=== PATIENT | female | born 1975 | race Caucasian/White ===

== ENCOUNTER 2021-02-05 13:52 | Emergency (ER) | payer OTHER, SELFPAY ==
--- NOTE | 2021-02-05 14:26 | XR_ITS ---
WS: [id number] XR chest 1V portable [id number] REASON FOR EXAM: cough, congestion FINDINGS: Mild tortuosity of the thoracic aorta. Normal heart size. Calcified granulomatous disease in both hemithoraces. No active pulmonary parenchymal or pleural disease. No significant abnormality of the bony thorax. XR/XR chest 1V portable [id number] IMPRESSION: No acute chest abnormality.
[2021-02-05 14:44] VITALS: BP 167/102; PULSE 90; RESP 16; TEMP 36.8; O2SAT 96; BMI 44.6
[2021-02-05 18:49] VITALS: O2SAT 98
--- NOTE | 2021-02-05 18:50 | W.ED.COVID ---
HPI - COVID General: Chief Complaint: COVID symptoms Stated Complaint: Cough, Ear Pain, DAVIS, Congestion Time Seen by Provider: 02/05/21 18:37 Source: patient Mode of arrival: ambulatory Limitations: no limitations Triage information: Has fever, cough or shortness of breath. No known COVID + exposure last 14 days History of Present Illness: HPI Narrative: Female states of last 2 days she has been having nasal congestion, bilateral ear pain and a slight cough. States that she had some sinus pain as well. She denies any fever denies any shortness of breath. Denies any worsening improving factors. She denies any vomiting or diarrhea. COVID 19 common symptoms: positive non-productive cough and nasal congestion; negative fever(s), chills, body aches, headache(s), nausea, vomiting or diarrhea COVID 19 other sytmptoms: negative chest pain COVID Results: SARS-CoV-2 Antigen (Rapid) Negative (Negative) 02/05/21 18:46 02/05/21 Review of Systems Const: Denies: fever(s), chills, body aches or change in appetite Eyes: Denies: blurry vision or eye discomfort ENMT: Reports: nasal discharge and nasal congestion Card: Denies: chest pain Resp: Reports: non-productive cough GI: Denies: abdominal pain, nausea, vomiting or diarrhea : Denies: dysuria Musc: Denies: neck pain or back pain Skin/Breast: Denies: rash Neuro: Denies: headache(s) Psych: Denies: depression Immanuel/Lymph: Denies: easy bruising All/Imm: Denies: urticaria Physical Exam Const: COMMON NORMALS: no acute distress, patient oriented x3 and healthy appearing HENMT: COMMON NORMALS: normocephalic, atraumatic and TM's normal bilaterally HEAD & SCALP: normocephalic and atraumatic TYMPANIC MEMBRANE: TM's normal bilaterally Eye: COMMON NORMALS: Equal, round and reactive pupils present and EOMs intact bilaterally PUPIL: Yes Equal, round and reactive pupils present Neck/C-Spine: COMMON NORMALS: full ROM and supple Chest: COMMONS NORMALS: normal inspection of the chest and normal palpation of entire chest wall Resp: COMMON NORMALS: normal respiratory effort, No retractions, No use of accessory muscles and clear to auscultation bilaterally AUSCULTATION: clear to auscultation bilaterally Cardio: COMMON NORMALS: regular rate, regular rhythm and No murmurs present (Cardio) RATE: regular rate RHYTHM: regular rhythm GI: COMMON NORMALS: Normal to inspection, nondistended, normoactive bowel sounds present, Soft to palpation, non-tender and no masses PALPATION: Yes Soft to palpation Extremity: COMMON NORMALS: normal to inspection and full ROM Neuro: COMMON NORMALS: patient oriented x3, moves all extremities and no focal motor deficits Psych: COMMON NORMALS: mental status grossly normal, Normal thought process present and cooperative THOUGHT PROCESS: Normal thought process present Skin: COMMON NORMALS: no rashes or lesions noted and no wounds GENERAL SKIN EXAM: no rashes or lesions noted Course Vital Signs: Vital signs: Vital Signs Temperature 98.4 F 02/05/21 18:52 Pulse Rate 92 02/05/21 19:32 Respiratory Rate 16 02/05/21 18:52 Blood Pressure 158/82 02/05/21 19:32 Pulse Oximetry 97 02/05/21 19:32 MDM - COVID MDM Narrative: Medical decision making narrative: Patient presents with likely sinusitis she is taking decongestants we will give her Decadron. Her Covid here is negative and she is well-appearing. She is stable for discharge to follow-up PCP and return if worsening. Lab Data: Labs: Lab Results 02/05/21 18:46 SARS-CoV-2 Ag (Rap id) Negative (Negative) COVID Results: SARS-CoV-2 Antigen (Rapid) Negative (Negative) 02/05/21 18:46 02/05/21 Discharge Plan Discharge Patient Disposition: Home Clinical Impression: Acute sinusitis Qualifiers: Sinusitis location: unspecified location Recurrence: not specified as recurrent Qualified Code(s): J01.90 - Acute sinusitis, unspecified Condition: Stable Prescriptions: New cephalexin 500 mg capsule 500 mg PO TID 7 Days Qty: 21 RF: 0 Discharge Orders: Discharge ED (Routine); Ordered 02/05/21 Ordered By: Maria Christie Referrals: Luisa Mcguire APRN [Primary Care Provider] - Discharge Diet: Advance as tolerated Discharge Activity: Resume usual activity Patient Instructions: Sinusitis (ED) Coding Level of Care Code 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
[2021-02-05 18:52] VITALS: BP 162/98; PULSE 91; RESP 16; TEMP 36.9; O2SAT 96
[2021-02-05 19:32] VITALS: BP 158/82; PULSE 92; O2SAT 97
--- NOTE | 2021-02-05 19:32 | PC.NURSE ---
NURSE PROVIDED BLANKET. NO FURTHER NEEDS AT THIS TIME.
[2021-02-05 19:34] LABS: SARS Covid-2 Antigen Negative (Negative)
[2021-02-05] MEDS: dexamethasone 10 mg/mL INJ IM (20:00)
== END 2021-02-05 20:04 | disposition home or self-care (01) ==
PROVIDERS: Physician Assistant; Emergency Provider Emergency Medicine; PCP Nurse Practitioner Family
DX: J01.90 Acute sinusitis, unspecified (principal); Z20.822 Contact with and (suspected) exposure to COVID-19
CPT/HCPCS: 71045; 87426; 96372; 99283; J1100